=== PATIENT | female | born 1990 | race Caucasian/White ===

== ENCOUNTER → 2017-05-18 | Outpatient (REF) ==
[~2017-05-18] MED LIST: FLAGYL500 MG PO; MOTRIN 800800 MG/TAB PO; PERCOCET 325 MG1 TA2 PO; PRENATAL1 TA7 PO
[2017-05-18 10:28] LABS: THYROID STIMULATING HORMONE 1.65 uIU/mL (0.465-4.680)
== END ==
LOC: ZLAB.WCH 09:13
PROVIDERS: Family Medicine
DX: Z01.89 Encounter for other specified special examinations (principal)

== ENCOUNTER 2021-04-20 10:22 | Day surgery (SDC) | payer SELFPAY ==
[2021-04-20] VITALS (7 sets, daily range): BP systolic 105–126; BP diastolic 61–83; PULSE 68–85; TEMP 97.2–97.9
[~2021-04-20] VITALS: Ht 162.6 cm; Wt 74.4 kg
[2021-04-20] MEDS ORDERED: PRINZIDE 25 MG-1 TAB PO (10:39)
--- NOTE | 2021-04-20 11:00 | NUR ---
PATIENT AMBULATED INTO SDC UNIT WITH STEADY GAIT. PATIENT'S TO RETURN UPON PHONE CALL. PATIENT IS ALERT AND ORIENTED X 4. PATIENT HAD COVID TEST DONE IN [place] -- RESULT WILL BE FAXED -- NEGATIVE. URINE HCG DONE-- NEGATIVE. CONSENT EXPLAINED AND PATIENT SIGNED. ASSESSMENT COMPLETED. LUNGS CTA. HEART SOUNDS S1,S2 AND REGULAR. BOWEL SOUNDS NORMAL. PEDAL PULSEA +2. CALL LIGHT EXPLAINED AND PATIENT VOICED UNDERSTANDING.
[2021-04-20 11:44] LABS: ALBUMIN 4.8 gm/dL (3.5-5.0); BILIRUBIN,TOTAL 0.2 mg/dL (0.0-1.0); CALCIUM 9.2 mg/dL (8.4-10.2); CREATININE, serum 1.13 (0.52-1.25); POTASSIUM 3.7 mmol/L (3.4-5.0)
[2021-04-20] MEDS ORDERED: NORCO 325 MG-51 TAB PO (13:56)
--- NOTE | 2021-04-20 14:40 | NUR ---
PATIENT TRANSPORTED PER CART FROM PACU TO BAY 3 ACCOMPANIED BY CONSTRUCTION ENGINEER. PATIENT CONTINUES O2 AT 2 LITERS PER NASAL CANNULA. MONITORS APPLIED. VSS. PATIENT SLEEPY AT THIS TIME. REPORT RECEIVED PER PHONE CALL. NO FAMILY IN THE ROOM AT THIS TIME.
--- NOTE | 2021-04-20 14:45 | NUR ---
VSS ON ROOM AIR. PATIENT RESTING ON CART WITH EYES CLOSED AND EVEN RESPIRATIONS.
--- NOTE | 2021-04-20 15:03 | NUR ---
VSS ON ROOM AIR. PATIENT STATES SHE IS THIRSTY. PATIENT GIVEN WATER TO DRINK. PATIENT STATES THAT HAVING SOME DISCOMFORT TO ABD BUT THAT IT IS TOLERABLE.
--- NOTE | 2021-04-20 15:16 | NUR ---
VSS ON ROOM AIR. O2 WAS DC'D AT 1500. PATIENT TOLERATED WATER WITHOUT PROBLEMS. PATIENT STATES SHE IS HUNGRY. PATIENT GIVEN BUTTER TOAST. PATIENT EATING TOAST. IN ROOM AND TALKING WITH .
--- NOTE | 2021-04-20 15:36 | NUR ---
VSS ON ROOM AIR. PATIENT TOLERATES TOAST WITHOUT PROBLEMS. PATIENT STATES DISCOMFORT TO ABD IS A 8/10. PATIENT GIVEN PO NORCO ORDER. PATIENT TALKING WITH .
--- NOTE | 2021-04-20 15:45 | NUR ---
VSS ON ROOM AIR. PATIENT STATES PAIN MED IS STARTING TO HELP. PATIENT AMBULATED TO RESTROOM WITH 1 ASSIST SLOW STEADY GAIT. PATIENT VOIDS WITHOUT PROBLEMS. HELPS PATIENT CHANGE INTO STREET CLOTHES. 1555 IV DC'D WITH CATHETER TIP INTACT. PRESSURE AND BANDAGE APPLIED.] 1600 DISCHARGE INSTRUCTIONS GIVEN VERBAL AND DISCHARGE PACKET PROVIDED. PATIENT AND VERBALIZED UNDERSTANDING AND QUESTIONS ANSWERED. 1610 PATIENT DISMISSED PER WHEEL CHAIR ACCOMPANIED BY AMB RN TO PRIVATE VECHILE DRIVEN BY .
== END 2021-04-20 16:10 | disposition home or self-care (01) ==
LOC: SDCO 10:22
PROVIDERS: Surgery
DX: K80.10 Calculus of gallbladder with chronic cholecystitis without obstruction (principal); I10 Essential (primary) hypertension
CPT/HCPCS: J0690; J1100; J1885; J2175; J2250; J2405; J2704; J3010; J7120